=== PATIENT | female | born 2000 | race Caucasian/White ===

== ENCOUNTER 2023-10-05 13:12 | Emergency (ER) | payer BC, SELFPAY ==
[2023-10-05 13:16] VITALS: BP 119/63
--- NOTE | 2023-10-05 14:30 | ED.GENMED ---
History of Present Illness
General
Chief Complaint: Headache
Source: patient and family
Exam Limitations: none
Time Seen by Provider: 10/05/23 14:07
Nursing documentation reviewed up to this point in time: agreed with
Travel History
Have you had any contact with someone who has COVID-19?: No
Do you have any symptoms of coronavirus? Fever > 100 degrees, chills, cough, shortness of breath, sore throat, loss of taste or smell, muscle aches, or headache?: No
History of Present Illness
History of Present Illness:
The patient is a 23-year-old female with a past medical history of migraines who comes in with complaints of intermittent headaches on the left side of her head, radiating towards the base of her head. Patient reports that the pain started about a
week ago. Patient reports that when the pain gets intense, is associated with nausea and vomiting. It is also associated with sensitivity to light. She denies sore throat, fever and rash. In addition, she reports over the last 2 days, she has
developed ear pain and fullness in her left face and sinus area.
Past History
Past History
ED Past Medical History: Other (Migraine headache)
ED Past Surgical History: None
Patient has exhibited threatening behavior?: No
Social History
Tobacco: Non-smoker
Alcohol: Other
Drug: None
Personal: Single
Living: with family
Employment: Employed
Family History
Family History: CAD; Negative Sudden
Review of Systems
Review of Systems
Allergies reviewed?: Yes
Other source history: family
All Other Systems: ROS reviewed and negative except as documented in HPI and ROS
Constitutional: Reports no symptoms
EENT: Reports other (Left ear pain)
Respiratory: Reports no symptoms
Cardiac: Reports no symptoms
ABD/GI: Reports no symptoms
: Reports no symptoms
Musculoskeletal: Reports no symptoms
Skin: Reports no symptoms
Neurological: Reports headache
Endocrine: Reports no symptoms
Hematologic/Lymphatic: Reports no symptoms
Psychiatric: Reports no symptoms
Phy Exam
Physical Exam
Physical Exam:
Physical Exam
General: no apparent distress, not acutely ill. Nontoxic and conversational
Neck: supple. no meningeal signs. No pharyngeal erythema or exudate. No soft tissue neck swelling. No lymphadenopathy. Mild left TM erythema. Right TM appears normal
Heart: s1/s2 regular rate and rhythm, no murmur. equal radial pulses.
Lungs: no acute respiratory distress. clear bilaterally
Abdomen: normal bowel sounds. not tender. no CVAT
Neuro: alert and orientedx3. no focal neurological deficits. Extraocular muscles intact.
Skin: no rash
Psychiatric: well kept. interactive and cooperative
Extremities: no edema. no calf tenderness. negative homans. good distal pulses
Course
Orders/Labs/Results
Orders:
Orders
10/05/23 14:29
0.9% Sodium Chloride 1000 ml [Nss] 1,000 ml IV BOLUS
10/05/23 14:30
Diphenhydramine [Benadryl] 25 mg IV NOW STA
Ketorolac [Toradol] 30 mg IV NOW STA
Metoclopramide [Reglan] 10 mg IV NOW STA
10/05/23 16:34
CT Head W/o Iv Contrast Urgent
Comment:
Reason For Exam: L sided headache
Butalb/Acetaminophen/Caffeine [Fioricet] 2 tab PO NOW STA
10/05/23 18:43
Amoxicillin [Amoxil] 500 mg PO NOW STA
Vital Signs
Initial and Last Documented VS:
Initial Vital Signs
Temp Pulse Resp BP Pulse Ox
97.6 F 71 16 119/63 98
10/05/23 13:16 10/05/23 13:16 10/05/23 13:16 10/05/23 13:16 10/05/23 13:16
Last Documented Vital Signs
Temp Pulse Resp BP Pulse Ox
97.6 F 68 18 115/66 99
10/05/23 13:16 10/05/23 18:13 10/05/23 18:13 10/05/23 18:56 10/05/23 18:13
MDM/Problems Addressed
Differential Diagnosis Includes:
Acute migraine headache, acute sinusitis, acute left-sided otitis media
MDM/Problems Addressed:
Patient complains of several days of a headache and 2 days of left ear pain
Chronic conditions affecting care:
Migraine
Acute Exacerbation and/or Progression of Chronic Illness:
Patient may have acute exacerbation of her chronic migraines
*Radiology
Radiology exam reviewed: radiology read reviewed
*Pulse Oximetry
Patient hypoxic: no
*Critical Care Note
Total Time (30-74mins, 75-104mins- exclusive of procedures): Not Applicable
Data Reviewed
Review of Other/Old Records Reveals: Radiology Studies (CT head reviewed from 2019 which shows no acute disease)
Source: patient and family
Prescriptions/Medications Considered But Not Given:
Patient will be given IV fluids, Reglan and Benadryl for likely migraine headache. In addition, she will also receive Toradol for her 8 out of 10 head pain.
Update Note
Update Note:
4:30 Patient states that she still has pounding on the left side of her head and states this headache is unusual for her typical migraine. Patient still appears nontoxic but would like a CAT scan of her head to make sure she is okay. Patient
reports overall the pain has improved but not significantly. Patient still has a normal neurological exam
Patient continues to look well nontoxic. She reports she feels better and is happy to go home. Patient continues to show no toxicity or meningitis. There is no sign of mastoiditis
ED Attending Note
-
Portions of this chart may have been created with voice recognition software.� Occasional wrong word or��sound alike� substitutions may have occurred due to the inherent limitations of voice recognition software.
Discharge Plan
Departure
Patient Disposition: Home (Routine Discharge)
Date of Disposition: 10/05/23
Time of Disposition: 18:44
Patient with high blood pressure during this ER visit?: No
Condition: Good
Covid-19: Not Applicable
Discharge Problem:
Headache, Acute left otitis media
Instructions: Headache, Adult (DC), Ear Infection ED
Prescriptions:
New
amoxicillin 875 mg tablet
875 mg PO BID Qty: 13 0RF
giukhglkbe-fddnujzblhavq-whkh [Fioricet] 50-300-40 mg capsule
1 cap PO TID PRN (Reason: Pain) Qty: 7 0RF
Referrals:
Chanda Weston PA-C [Family Provider] -
Activity Restrictions/Additional Instructions:
Please follow-up with your primary care doctor within 1 week. Do not take the Fioricet within 4 hours of taking Tylenol because Fioricet contains Tylenol
Interventions
Interventions:
*Risk Screen - Suicide Last Done: 10/05/23 13:16
*General Assessment Last Done: 10/05/23 13:16
*Neglect/Abuse Screening Last Done: 10/05/23 13:16
ED- Fall Risk Assessment Last Done: 10/05/23 14:00
*ED COVID-19 Vaccine History Last Done: 10/05/23 13:16
*Nursing Disposition Last Done: 10/05/23 18:56
ED- Neurological Assessment Last Done: 10/05/23 14:00
Discharge Date and Time
Discharge Date/Time: 10/05/23 18:59
[2023-10-05] MEDS: NSS 1000 IV (15:03)
[2023-10-05] MEDS: BENADRYL 25 MG IV (15:04)
[2023-10-05] MEDS: TORADOL 30 MG IV (15:05)
[2023-10-05] MEDS: REGLAN 10 MG IV (15:05)
[2023-10-05] MEDS: FIORICET 2 TAB PO (16:45)
[2023-10-05 18:13] VITALS: BP 115/66
[2023-10-05] MEDS: AMOXIL 500 MG PO (18:50)
[2023-10-05 18:56] VITALS: BP 115/66
== END 2023-10-05 18:59 | disposition home or self-care (01) ==
LOC: EMR 13:12
PROVIDERS: EMERGENCY PHYSICIAN Emergency Medicine; FAMILY PHYSICIAN Physician Assistant Medical
DX: R51.9 Headache, unspecified (principal); H66.92 Otitis media, unspecified, left ear
CPT/HCPCS: 99284; 96374; 96375 ×2; 96361; 70450